=== PATIENT | female | born 1990 | race American Indian/Alaskan Native ===

== ENCOUNTER 2019-12-30 17:42 | Outpatient (CLI) | payer MEDICAID ==
[2019-12-30 18:28] VITALS: BP 114/70
[2019-12-30 19:58] LABS: Hematocrit 34.8 % (30.3-42.9); Hemoglobin 11.5 gm/dl (10.1-14.3); Mean Corpuscular HGB Conc 33 % (30-34); Mean Corpuscular Volume 92 fl (79-97); Platelet Count 280 K/mm3 (140-440); Red Blood Count 3.78 M/mm3 (3.65-5.03); Red Cell Distribution Width 13.8 % (13.2-15.2)
--- NOTE | 2019-12-30 20:13 | Ultrasound Report ---
ULTRASOUND OBSTETRIC LIMITED INDICATION / CLINICAL INFORMATION: PATIENT FELL - VIEWING OF PLACENTA. TECHNIQUE: Transabdominal ultrasound imaging. COMPARISON: None available. FINDINGS: HEART RATE (beats per minute): 149 bpm AMNIOTIC FLUID INDEX (cm) = TAMMI was not measured. Grossly, amniotic fluid volume is unremarkable. PRESENTATION: Cephalic. ADDITIONAL FINDINGS: Placenta is located posteriorly -grade 1. No previa or abruption identified. IMPRESSION: Single viable IUP is present. Placenta appears unremarkable without suggestion of abruption. Signer Name: Brittany Pepper MD Signed: 12/30/2019 8:08 PM Workstation Name: [id number]
[2019-12-30 20:16] LABS: BUN/Creatinine Ratio 18; Blood Urea Nitrogen 9 mg/dL (7-17); Calcium 9.1 mg/dL (8.4-10.2); Hemolysis Index 7
== END 2019-12-30 21:06 | disposition home or self-care (01) ==
LOC: TRG 17:42 → APU 17:46 → TRG 21:06
PROVIDERS: ATTEND Obstetrics & Gynecology
DX: O26.893 Other specified pregnancy related conditions, third trimester (principal); Z3A.32 32 weeks gestation of pregnancy
CPT/HCPCS: 36415; 59025; 76815; 80048; 85027

== ENCOUNTER 2020-01-09 15:58 | Observation (INO) | payer MEDICAID ==
[2020-01-09] MEDS ORDERED: LACTATED RINGERS 500 ML IV ONE (16:27)
[2020-01-09 16:48] LABS: Hematocrit 32.7 % (30.3-42.9); Hemoglobin 11.1 gm/dl (10.1-14.3); Mean Corpuscular HGB Conc 34 % (30-34); Mean Corpuscular Volume 91 fl (79-97); Platelet Count 273 K/mm3 (140-440); Red Cell Distribution Width 13.8 % (13.2-15.2)
[2020-01-09 16:53] LABS: Bilirubin,Urine NEG (Negative); Blood,Urine SM (Negative); Color,Urine Yellow (Yellow); Mucus,Urine 1+ /HPF; Protein,Urine <15 mg/dL mg/dL (Negative); Urobilinogen,Urine < 2.0 mg/dL (<2.0)
[2020-01-09 17:04] LABS: Alanine Aminotransferase 11 units/L (7-56); Uric Acid 5.5 mg/dL (3.5-7.6)
[2020-01-09] MEDS ORDERED: ACETAMINOPHEN 500 MG TAB PO ONE (17:37)
[2020-01-09] MEDS ORDERED: hydrALAZINE 20 MG/1 ML INJ IV ONE (18:30)
--- NOTE | 2020-01-10 00:46 | History and Physical Report ---
History of Present Illness Date of examination: 01/10/20 Date of admission: 01/09/20 18:33 History of present illness: PT is a at 33.5 weeks presented in the evening with 1-2 days of dull CHRISTIANSON, not severe, and spotty vision. PT concerned because of preeclampsia in her last preg. No h/o CHTN and no HTN meds needed during this preg. Preeclamptic labs on admission were WNL. BPs were initially 140s over 90s but then she had a few consecutive SBPs over 170s. As a result, 5 mg Hydralazine given as well as starting 100mg Labetalol BID. Since then, most of her BPs have been WNL and under 140/90s. Her vision has normalized. Still has a dull CHRISTIANSON but it is mild and pt notes that she has not slept well lately. Otherwise uncomplicated preg per pt. not available at this time. Good FM. No ctxs. 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, HSV) Past Surgical History: no surgical history - Obstetrical History : 3 Medications and Allergies Allergies Allergy/AdvReac Type Severity Reaction Status Date / Time No Known Allergies Allergy Unverified 05/22/13 05:16 Home Medications Medication Instructions Recorded Confirmed Last Taken Type Valacyclovir HCl [Valacyclovir] 500 mg PO QDAY 07/25/13 07/25/13 Unknown History Active Meds: Active Medications Labetalol HCl (Labetalol) 100 mg PO BID TALIA Last Admin: 01/09/20 18:43 Dose: 100 mg Documented by: Review of Systems All systems: negative (except for HPI) - Vital Signs Vital signs: Vital Signs Temp Resp 99.0 F 22 01/09/20 16:42 01/09/20 16:42 Temp Pulse Resp BP Pulse Ox 97.7 F 86 18 135/76 99 01/09/20 23:55 01/10/20 00:42 01/09/20 23:55 01/10/20 00:30 01/10/20 00:42 - Obstetrical FHR: category 1 Uterine Contraction Pattern: Absent Results Result Diagrams: 01/09/20 16:30 01/09/20 16:30 Abnormal lab results 01/09/20 01/09/20 Range/Units 16:30 16:30 RBC 3.60 L (3.65-5.03) M/mm3 Lactate Dehydrogenase 224 H (91-180) units/L All other labs normal. Assessment and Plan - Patient Problems (1) Elevated blood pressure affecting in third trimester, antepartum Current Visit: Yes Status: Acute Plan to address problem: Elevated BPs on admission with h/o preeclampsia last preg but BPs controlled now after 5 mg Hydralazine x 1 and Labetalol 100mg BID. Will cont to observe overnight and if still stable BPs, will send home with Labetalol and pt can cont 24 hr urine at home. Would have pt f/u with office this week.
[2020-01-10 13:45] VITALS: BP 141/85
== END 2020-01-10 14:09 | disposition home or self-care (01) ==
LOC: TRG 15:58 → APU 16:09 → TRG 18:32 → LD 18:33
PROVIDERS: ADMIT Obstetrics & Gynecology; ATTEND Obstetrics & Gynecology
DX: O26.893 Other specified pregnancy related conditions, third trimester (principal); R03.0 Elevated blood-pressure reading, without diagnosis of hypertension; R51 Headache; Z87.59 Personal history of other complications of pregnancy, childbirth and the puerperium; Z3A.33 33 weeks gestation of pregnancy
CPT/HCPCS: 36415; 59025; 81001; 82565; 83615; 84450; 84460; 84550; 85027; 96374; G0378; J0360; J7120; 96360